=== PATIENT | female | born 1955 | race Caucasian/White ===

== ENCOUNTER 2016-07-29 08:45 | Day surgery (SDC) | payer BC ==
[~2016-07-29 08:45] MED LIST: ATIVAN0.5 MG PO; NOMEDS XX; PERCOCET 5/3251 EACH PO
--- NOTE | 2016-07-29 10:45 | Operative Note ---
Endoscopy Report Date: 07/29/16 Preoperative diagnosis: History of polyps Procedure Type of procedure: Total colonoscopy with polypectomy at several locations Indications: 61-year-old white female. I performed initial screening colonoscopy in March 2014. At that time she had 7 tubular adenomas one of which had high -grade dysplasia. I recommended a 2 year follow-up colonoscopy. Consent was obtained and patient was taken to same-day surgery endoscopy procedure room. Adequate intravenous sedation was achieved with titration of 9 mg Versed and 200 g fentanyl for the duration of the procedure. Variable stiffness Olympus colonoscope was inserted via the anus and advanced to the cecum with minimal difficulty. Ileocecal valve and appendiceal orifice were clearly identified. It was briefly advanced a short distance into the terminal ileum which appeared grossly normal. Colonoscope was withdrawn through the colon. Mostly in the LEFT colon beginning at the distal transverse there were several very small diminutive polyps encountered. These were removed in piecemeal fashion using cold biopsy forceps. Within the rectum there were several hyperplastic appearing polyps removed with cold biopsy forceps. Colonoscope was withdrawn. Findings: Several LEFT sided diminutive polyps Recommendations: Pending the pathology, number of adenomatous polyps, plan for likely repeat colonoscopy 3-5 years. at [id number]
[2016-07-29 12:27] VITALS: BP 117/69
== END 2016-07-29 11:10 | disposition home or self-care (01) ==
LOC: SDC 08:45
PROVIDERS: Surgery
PROC: 0DBP8ZX Excision of Rectum, Via Natural or Artificial Opening Endoscopic, Diagnostic (ICD-10-PCS; 2016-07-29)
PROC: 0DBL8ZX Excision of Transverse Colon, Via Natural or Artificial Opening Endoscopic, Diagnostic (ICD-10-PCS; principal; 2016-07-29 09:30)
DX: Z09 Encounter for follow-up examination after completed treatment for conditions other than malignant neoplasm (principal); Z86.010 Personal history of colon polyps; D12.3 Benign neoplasm of transverse colon; K62.1 Rectal polyp